=== PATIENT | male | born 1995 | race Two or more races ===

== ENCOUNTER 2020-02-05 18:47 | Emergency (ER) | payer SELFPAY ==
[~2020-02-05] VITALS: Ht 162.6 cm; Wt 81.4 kg
[2020-02-05] MEDS ORDERED: KETOROLAC TROMETHAMINE 60 MG/2 ML VIAL IM ONE (22:15)
[2020-02-05] MEDS ORDERED: ACETAMINOPHEN/CODEINE 300-30 MG TABLET PO ONE (23:30)
[2020-02-05 23:47] VITALS: BP 136/80
== END 2020-02-06 00:13 | disposition home or self-care (01) ==
LOC: EMS 18:49
DX: S83.91XA Sprain of unspecified site of right knee, initial encounter (principal); W01.0XXA Fall on same level from slipping, tripping and stumbling without subsequent striking against object, initial encounter; Y93.89 Activity, other specified; Y92.89 Other specified places as the place of occurrence of the external cause; Y99.8 Other external cause status
CPT/HCPCS: 29505; 73562; 96372; 99283; J1885; 29530